=== PATIENT | female | born 1995 | race Hispanic/Latino ===

== ENCOUNTER 2018-09-27 20:53 | Emergency (ER) | payer OTHER, BC ==
[2018-09-27 21:41] VITALS: BP 113/59; PULSE 73; RESP 16; TEMP 97.7; O2SAT 100
[2018-09-27] MEDS ORDERED: Silver Sulfadiazine 1% CREAM (50 gm) TOP STA (22:16)
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
[2018-09-27] MEDS ORDERED: Silver Sulfadiazine 1% CREAM (50 gm) ONE (22:57)
== END 2018-09-27 23:50 | disposition home or self-care (01) ==
LOC: H.ER 20:53
DX: T21.21XA Burn of second degree of chest wall, initial encounter (principal); X10.2XXA Contact with fats and cooking oils, initial encounter